=== PATIENT | female | born 1995 | race Caucasian/White ===

== ENCOUNTER 2023-04-05 13:31 | Emergency (ER) | payer SELFPAY ==
[~2023-04-05] VITALS: Ht 167.6 cm; Wt 81.6 kg
[2023-04-05 14:46] LABS: *BILIRUBIN,URIN NEGATIVE (NEGATIVE); *BLOOD, URINE NEGATIVE (NEGATIVE); *CLARITY,URINE SLIGHTLY CLOUDY (CLEAR); *COLOR,URINE YELLOW (YELLOW); *KETONES,URINE NEGATIVE (NEGATIVE); *PROTEIN,URINE 1+ (NEGATIVE); LEUKOCYTE ESTERASE ,URINE NEGATIVE (NEGATIVE); NITRITE, URINE NEGATIVE (NEGATIVE); UGLUCOSE NEGATIVE (NEGATIVE)
[2023-04-05] MEDS ORDERED: ONDANSETRON ODT 4 MG TAB.RAPDIS SL ONE (15:00)
[2023-04-05] MEDS ORDERED: ONDANSETRON ODT 4 MG TAB.RAPDIS ONE (15:05)
[2023-04-05 15:14] LABS: *URINE HCG, QUAL NEGATIVE (NEGATIVE)
[2023-04-05 15:25] LABS: BACTERIA,URINE NONE SEEN /HPF (NONE SEEN); RBC,URINE 0-3 /HPF (0-3); SQUAMOUS EPITHELIAL CELL,UR FEW /HPF (NONE SEEN); WBC,URINE 0-3 /HPF (0-3)
[2023-04-05 16:48] VITALS: BP 133/71; TEMP 98.3; O2SAT 98
== END 2023-04-05 16:49 | disposition home or self-care (01) ==
LOC: ER 13:31
DX: S70.01XA Contusion of right hip, initial encounter (principal); R10.2 Pelvic and perineal pain; W18.39XA Other fall on same level, initial encounter; Y93.89 Activity, other specified; Y92.89 Other specified places as the place of occurrence of the external cause; Y99.8 Other external cause status
CPT/HCPCS: 72170; 84703; A4606; A4663; Q0162

== ENCOUNTER 2023-06-15 03:48 | Emergency (ER) | payer OTHER ==
[~2023-06-15] VITALS: Ht 167.6 cm; Wt 86.2 kg
[2023-06-15 04:14] VITALS: O2SAT 97
[2023-06-15 05:12] LABS: BASOPHILS # (AUTO) 0.1 K/UL (0.0-0.2); BASOPHILS % (AUTO) 0.6 % (0.0-2.0); EOSINOPHILS # (AUTO) 0.1 K/uL (0.0-0.7); EOSINOPHILS % (AUTO) 1.6 % (0.0-7.0); HEMOGLOBIN 14.8 g/dL (10.9-14.3); LYMPHOCYTES # (AUTO) 3.4 K/uL (0.8-4.8); LYMPHOCYTES % (AUTO) 38.2 % (20.5-51.5); MEAN CORPUSCULAR HEMOGLOBIN 32.2 uug (24.7-32.8); MEAN CORPUSCULAR HGB CONC 34 g/dL (32.3-35.6); MEAN CORPUSCULAR VOLUME 93.5 fL (75.5-95.3); MONOCYTES # (AUTO) 0.9 K/uL (0.1-1.30); MONOCYTES % (AUTO) 9.6 % (0.0-11.0); NEUTROPHILS # (AUTO) 4.5 K/uL (1.8-8.9); PLATELET COUNT (AUTO) 335 K/uL (179-408); RED BLOOD CELL COUNT(AUTO) 4.59 MIL/uL (3.63-4.92); RED CELL DISTRIBUTION WIDTH 13.4 % (12.3-17.7)
[2023-06-15 05:14] LABS: *BILIRUBIN,URIN NEGATIVE (NEGATIVE); *BLOOD, URINE NEGATIVE (NEGATIVE); *CLARITY,URINE CLEAR (CLEAR); *COLOR,URINE YELLOW (YELLOW); *KETONES,URINE NEGATIVE (NEGATIVE); *PROTEIN,URINE 1+ (NEGATIVE); LEUKOCYTE ESTERASE ,URINE NEGATIVE (NEGATIVE); NITRITE, URINE NEGATIVE (NEGATIVE); UGLUCOSE NEGATIVE (NEGATIVE)
[2023-06-15 05:26] LABS: *URINE HCG, QUAL NEGATIVE (NEGATIVE)
[2023-06-15 05:28] LABS: DIFFERENTIAL COMMENT 1
[2023-06-15 06:13] LABS: CALCIUM 8.8 mg/dL (8.5-10.1); POTASSIUM 3.9 mmol/L (3.5-5.1)
[2023-06-15 06:19] LABS: *AMPHETAMINE, URINE NEGATIVE (NEGATIVE); *BARBITURATE, URINE NEGATIVE (NEGATIVE); *BENZODIAZEPINE, URINE NEGATIVE (NEGATIVE); *CANNABINOID, URINE NEGATIVE (NEGATIVE); *COCCAINE, URINE NEGATIVE (NEGATIVE); *OPIATE, URINE NEGATIVE (NEGATIVE); *PHENCYCLIDINE SCREEN,URINE NEGATIVE (NEGATIVE)
[2023-06-15 06:22] LABS: FENTANYL, URINE NEGATIVE (NEGATIVE)
[2023-06-15 06:26] LABS: ALBUMIN 3.4 g/dL (3.4-5.0); BILIRUBIN,TOTAL 0.2 mg/dL (0.2-1.0); TOTAL PROTEIN, SERUM 7.5 g/dL (6.4-8.2)
[2023-06-15] MEDS ORDERED: SWABABLE VALVE TRANSFER SET EA MC ONE (07:09)
[2023-06-15] MEDS ORDERED: IOHEXOL 350 100 ML INFUS..BTL ONE (07:10)
[2023-06-15] MEDS ORDERED: IV NORMAL SALINE 250 ML IV ONE (07:10)
[2023-06-15] MEDS ORDERED: ALBU8.5H8 INH (08:16)
[2023-06-15] MEDS ORDERED: PRED50TA PO (08:16)
== END 2023-06-15 07:30 | disposition home or self-care (01) ==
LOC: ER 04:01
DX: R04.2 Hemoptysis (principal); R10.2 Pelvic and perineal pain; Z20.822 Contact with and (suspected) exposure to COVID-19; Z98.890 Other specified postprocedural states
CPT/HCPCS: 99285; 71275; 87426; 80053; 84703; 83880; 85025; 85379; 84484; 36415; 80307; 81003; Q9967; A4606; A4663